=== PATIENT | male | born 1975 ===

== ENCOUNTER 2021-06-15 17:14 | Emergency (ER) | payer SELFPAY ==
--- NOTE | 2021-06-15 18:00 | Emergency Department Report ---
ED General Adult HPI - General Chief complaint: Overdose Stated complaint: DRANK BLEACH Time Seen by Provider: 06/15/21 17:59 Source: patient Mode of arrival: Ambulatory Limitations: No Limitations - History of Present Illness Initial comments: 46-year-old male with past medical history of hypertension who has been noncompliant with his medication for several years presents to the ER today with complaints of accidentally drinking bleach. Patient states that he was at work, cleaning up a bathroom, and there was a water bottle which contained a small amount of liquid which he assumed was water. He states he took one swallow of the liquid and realized it wasn't water and it was bleach. 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 He is not sure exactly what other cleaning agents that may have been mixed in because he did not do the mixture today. He states that immediately after drinking what was in the bottle, he vomited once. He states that he called a friend and the friend told him to drink water and milk and states that he just vomited several more times after drinking the water and milk. He is unable to quantify how many times he vomited altogether. He denies any hematemesis or coffee-ground emesis. He denies any abdominal pain. He states that the last time he vomited as well as prior to coming to the ER he has not vomited since he has been here. He reports loose stools x1 but denies any watery stools, hematochezia or mucus in the stools or melena. He states that this was accidental, and he did not do it intentionally to hurt himself. He reports a history of alcohol abuse, he states that he drinks between 4-6 beers per day. He denies any illicit drug use. MD Complaint: Drank bleach -: This afternoon (around 3 pm ) - Related Data Previous Rx's Medication Instructions Recorded Last Taken Type Ondansetron [Zofran Odt] 4 mg PO Q8HR PRN #12 tab.rapdis 06/15/21 Unknown Rx amLODIPine 10 mg PO DAILY #30 tab 06/15/21 Unknown Rx Allergies Allergy/AdvReac Type Severity Reaction Status Date / Time No Known Allergies Allergy Verified 06/15/21 17:21 ED Review of Systems ROS: Stated complaint: DRANK BLEACH Other details as noted in HPI Comment: All other systems reviewed and negative Constitutional: denies: chills, fever Eyes: denies: eye pain, eye discharge, vision change ENT: denies: ear pain, throat pain, dental pain, hearing loss, congestion Respiratory: denies: shortness of breath, SOB with exertion, SOB at rest Cardiovascular: denies: chest pain, palpitations, dyspnea on exertion, edema, syncope, paroxysmal nocturnal dyspnea Gastrointestinal: nausea, vomiting. denies: abdominal pain, diarrhea, constipation, hematemesis, melena, hematochezia Genitourinary: denies: urgency, dysuria, discharge, testicular pain, testicular mass Musculoskeletal: denies: back pain, joint swelling, arthralgia, myalgia Skin: denies: rash, lesions, change in color, change in hair/nails, pruritus Neurological: denies: headache, weakness, numbness, paresthesias, confusion, abnormal gait, vertigo Psychiatric: denies: anxiety, depression, auditory hallucinations, visual hallucinations, homicidal thoughts, suicidal thoughts Hematological/Lymphatic: denies: easy bleeding, swollen glands ED Past Medical Hx - Past Medical History Previous Medical History?: No - Surgical History Past Surgical History?: No - Medications Home Medications: Home Medications Medication Instructions Recorded Confirmed Last Taken Type Ondansetron [Zofran Odt] 4 mg PO Q8HR PRN #12 tab.rapdis 06/15/21 Unknown Rx amLODIPine 10 mg PO DAILY #30 tab 06/15/21 Unknown Rx ED Physical Exam - General Limitations: No Limitations ED Course Vital Signs 06/15/21 06/15/21 06/15/21 17:21 19:47 21:11 Temperature 98.9 F Pulse Rate 90 83 85 Respiratory 16 18 Rate Blood Pressure 214/143 Blood Pressure 204/127 200/137 [Left] O2 Sat by Pulse 95 100 Oximetry ED Medical Decision Making - Medical Decision Making 175: Patient presented to the ER after accidentally ingesting a small amount of bleach mixture from work. He denies SI/HI. Patient was having nausea and vomited, but he has not vomited since arriving to the ER. He reports no hematemesis, coffee-ground emesis, hematochezia. He is currently not toxic or ill-appearing. He does not appear dehydrated. He denies any abdominal pain and he has a soft nontender abdomen. Neurologically intact. 1813: Discussed case with poison control. They do not recommend any labs/ intervention or observation. Patient blood pressure is noted to be elevated in triage but patient admits that he has a history of hypertension has been noncompliant with his medication. Patient given dose of clonidine and will recheck his BP. 2122: Patient blood pressure not normal but there is some improvement after clonidine. He states that he still feels a little nauseous but he has not had any further vomiting during stay. He is currently sitting comfortably in the chair, and he is not in any significant distress. He is not toxic or ill- appearing. He is neurologically intact with a normal gait. Other than the nausea he denies any other symptoms currently. Patient will be started on amlodipine to help control his blood pressure. Informed patient on the importan ce of taking the amlodipine daily to keep his blood pressure under control. He will be given referral to local PCP to continue monitoring his blood pressure. He will be discharged home with some Zofran to help with nausea and recommend lots of fluids. Patient expressed understanding of all instructions and agree with plan. Patient stable at time of discharge. Critical care attestation.: If time is entered above; I have spent that time in minutes in the direct care of this critically ill patient, excluding procedure time. ED Disposition Clinical Impression: Ingestion of bleach, Uncontrolled hypertension, Non compliance w medication regimen Disposition: 01 HOME / SELF CARE / HOMELESS Is pt being admited?: No Does the pt Need Aspirin: No Condition: Stable Instructions: Nontoxic Ingestion, Adult, Hypertension, Adult, [id number], Hypertension (ED) Additional Instructions: Take the zofran as prescribed to help with nausea or vomiting. Drink lots of water. It is important that you start the blood pressure medication prescribed to you today and take it daily. You will need to follow up with PCP for continued monitoring of your blood pressure. Return to ED if symptoms worsens or changes in anyway. Prescriptions: amLODIPine 10 mg PO DAILY #30 tab Ondansetron [Zofran Odt] 4 mg PO Q8HR PRN #12 tab.rapdis PRN Reason: Nausea And Vomiting Referrals: JOSE MACIAS MD [Staff Physician] - 3-5 Days [facility] [Provider Group] - 3-5 Days Forms: Work/School Release Form(ED) Time of Disposition: 21:17 Print Language: TONGAN
[2021-06-15] MEDS ORDERED: cloNIDine 0.2 MG TAB PO ONE (18:13)
[2021-06-15 21:11] VITALS: BP 200/137
[2021-06-15] MEDS ORDERED: ONDANSETRON 4 MG ODT TAB PO ONE (21:12)
== END 2021-06-15 21:29 | disposition home or self-care (01) ==
LOC: ED 17:14
DX: T54.91XA Toxic effect of unspecified corrosive substance, accidental (unintentional), initial encounter (principal); I10 Essential (primary) hypertension; Y92.89 Other specified places as the place of occurrence of the external cause
CPT/HCPCS: 99282; Q0162